=== PATIENT | male | born 2005 | race Caucasian/White ===

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

== ENCOUNTER 2024-11-29 15:43 | Emergency (ER) | payer OTHER, SELFPAY ==
[2024-11-29 15:52] VITALS: BP 166/79; PULSE 83; RESP 16; TEMP 37.4; O2SAT 100
--- NOTE | 2024-11-29 16:05 | ED_ITS ---
HPI - Male Genitourinary General Chief complaint: Urogenital-Male Stated complaint: STD Exposure Time Seen by Provider: 11/29/24 16:05 Source: patient Mode of arrival: ambulatory Limitations: no limitations History of Present Illness HPI Narrative: 19 yo M presents with small red bump to R lower lip. pt thinks bump is a pimple but Started after intercourse with new partner. Talked to the partner about it and in the past she has had oral herpes. Takes an antiviral daily and does not have any active lesions. Pt here for testing. All systems reviewed and negative except as noted above. Related Data Allergies Allergy/AdvReac Type Severity Reaction Status Date / Time Bumble Bee Allergy Unknown POSSIBLE Uncoded 11/29/24 16:03 Review of Systems Review of Systems: CONSTITUTIONAL: Denies fever, chills, or sweats. EYES: Denies visual changes, redness, or discharge. ENT: Denies rhinorrhea, congestion, sore throat, or otalgia. CARDIOVASCULAR: Denies chest pain, palpitations, or edema. RESPIRATORY: Denies cough or dyspnea. GASTROINTESTINAL: Denies abdominal pain, nausea, vomiting, or diarrhea. GENITOURINARY: Denies dysuria or hematuria. SKIN: Denies rash or itching. reports small red bump to R lower lip MUSCULOSKELETAL: Denies back pain, joint pain, or myalgia. NEUROLOGIC: Denies headache, numbness, or weakness. PSYCHIATRIC: Denies anxiety or depression. All other systems reviewed are negative, except as documented in HPI. [facility] Past Medical History Medical History (Updated 11/29/24 @ 16:13 by Traci Centeno NP) History of seizures as a child no etiology known History of strep sore throat Surgical History Surgical History (Updated 01/15/21 @ 16:29 by Jasmin Hoffman NP) No history of previous surgery Family History Family History (Updated 01/15/21 @ 16:29 by Jasmin Hoffman NP) Other No significant family history Social History Social History (Updated 01/15/21 @ 16:30 by Jasmin Hoffman NP) Smoking status: Never smoker Alcohol intake: never Substance use: never Living arrangements: with family Occupation/Education: student Gender identity (if verbalized by the patient): Male Comments At time of signature, agree with nursing past medical, surgical, social and family history. There is no relevant family history pertinent to the presenting complaint. Exam Narrative: GENERAL: This is a well-nourished, well-developed patient, in no apparent dis tress. HEAD: normocephalic, atraumatic. EYES: PERRL. Sclera clear/white. Vision is grossly intact. EARS: External ears normal NOSE: External nose normal NECK: Neck supple, non-tender without lymphadenopathy, masses or thyromegaly. CARDIOVASCULAR: Regular rate and rhythm without murmurs, gallops, or rubs. RESPIRATORY: Clear to auscultation. Breath sounds equal bilaterally. No wheezes, rales, or rhonchi. SKIN: warm, Dry, intact with no suspicious lesions or rash, good texture and turgor. very small red papule to R lower lip. NEURO: awake, alert, and oriented to person, place and time. There were no obvious focal neurologic abnormalities. EXTREMITIES: No joint tenderness, effusion, or edema noted. Course Course Level of Care: Express Care Visit Vital Signs Vital signs: Vital Signs Temperature 37.4 C 11/29/24 15:52 Pulse Rate 83 11/29/24 15:52 Respiratory Rate 16 11/29/24 15:52 Blood Pressure 166/79 H 11/29/24 15:52 Pulse Oximetry 100 11/29/24 15:52 Oxygen Delivery Room Air 11/29/24 15:52 Temperature 37.4 C 11/29/24 15:52 Pulse Rate 83 11/29/24 15:52 Respiratory Rate 16 11/29/24 15:52 Blood Pressure 166/79 H 11/29/24 15:52 Pulse Oximetry 100 11/29/24 15:52 Oxygen Delivery Room Air 11/29/24 15:52 reviewed MDM - Male Genitourinary MDM Narrative Medical decision making narrative: erythematous papule to R lower lip most likely a pimple. Too small to swab with viral culture. REcommend follow up with STI clinic for any worsening of symptoms. Please be advised this is a medical document. It is intended for [id number] communication. It is written in medical language and may contain unfamiliar abb reviations or verbiage. Medical documents are intended to carry relevant information, facts as evident, and the clinical opinion of the practitioner at the time of the encounter. This report may have been done utilizing a voice recognition system. Attempts have been made to correct errors. However, there may be uncorrected grammatical, spelling, and recognition errors present. The file time of this note does not necessarily represent the time of service. Discharge Plan Discharge Clinical Impression: Concern about STI in male without diagnosis Patient Disposition: Home, Self-Care Condition: Stable Instructions: Genital Herpes Infection (ED), Oral Herpes Infection (ED) Additional Instructions: Read over discharge instructions to better educate yourself about herpes. If you develop a lesion, follow up at an STI clinic for testing and treatment. Patient Language: Maori Prescriptions: No Action cephalexin 500 mg tablet 500 mg PO Q8H Qty: 30 0RF mupirocin 2 % ointment 1 applic topical BID Qty: 22 0RF Rx Instructions: apply to abscess after soaking Follow-up/Referrals: Tyrell Tristan MD [Physician] - (establish care with a primary care physician) Time of Disposition: 16:13
== END 2024-11-29 16:17 | disposition home or self-care (01) ==
PROVIDERS: Emergency Provider Nurse Practitioner Family
DX: Z20.2 Contact with and (suspected) exposure to infections with a predominantly sexual mode of transmission (principal)
CPT/HCPCS: 99211; G0463